=== PATIENT | male | born 1970 | race Caucasian/White ===

== ENCOUNTER 2020-04-13 19:26 | Emergency (ER) | payer OTHER, SELFPAY ==
[2020-04-13 19:37] VITALS: BP 143/76; PULSE 96; RESP 20; TEMP 37.1; O2SAT 98
--- NOTE | 2020-04-13 19:37 | ED.GENADULT ---
HPI - General Adult General Chief complaint: Skin/Abscess/Foreign Body Stated complaint: red patches on left arm Time Seen by Provider: 04/13/20 19:37 Source: patient and RN notes reviewed Mode of arrival: ambulatory Limitations: no limitations History of Present Illness HPI narrative: 49-year-old male presents with complaints of redness, swelling, and itching rash to LT arm for the past 6 hours. No treatment. Ricky says he was outside earlier prior to rash and might had been bitten by and insect unsure at this time. Denies new detergent, personal hygiene products or laundry detergents. No new foods or medications. No pain, burning, bleeding, or drainage. Denies fever, chills, headaches, weakness, fatigue, myalgia, facial swelling, or tongue swelling. Denies dyspnea. Remains active. Tolerating p.o. intake. The patient reports he have not been diagnosed with COVID-19. The patient reports he is not waiting for the results of a COVID-19 lab test. The patient reports he do not have fever, chills, weakness, fatigue, or loss of appetite. The patient reports he do not have a new or worsening cough or shortness of breath. Denies chest pain. The patient reports he do not have any rhinorrhea, congestion, sore throat, nausea, vomiting, abdominal pain, and diarrhea. Denies recent traveling. Denies concerns for COVID-19 or exposures been home with limited outdoor exposure except for essential household needs and return home. At this time, patient is not suspected of having COVID-19. Some parts of this dictation were generated by voice recognition software and may contain typographical and/or grammatical inaccuracies. Related Data Home Medications Medication Instructions Recorded Confirmed Heart Burn Medicine 04/13/20 Htn Medicine 04/13/20 Thyroid Medicine 04/13/20 Allergies Allergy/AdvReac Type Severity Reaction Status Date / Time ibuprofen AdvReac Other Verified 04/13/20 19:36 Review of Systems Review of Systems: Narrative: CONSTITUTIONAL: Denies fever, chills, sweats. EYES: Denies visual changes, redness, discharge. ENT: Denies rhinorrhea, congestion, sore throat, otalgia. CARDIOVASCULAR: Denies chest pain, palpitations, edema. RESPIRATORY: Denies dyspnea, wheezing, cough. GASTROINTESTINAL: Denies abdominal pain, nausea, vomiting, diarrhea. GENITOURINARY: Denies dysuria, hematuria, abnormal discharge. SKIN: Complains of redness, swelling, and itching rash to LT arm. Denies drainage or pain. MUSCULOSKELETAL: Denies acute back pain, joint pain, or myalgia. NEUROLOGIC: Denies numbness or focal weakness. PSYCHIATRIC: Denies anxiety or depression. All other systems reviewed are negative, except as documented in HPI and below. [facility] Past Medical History Medical History (Updated 04/14/20 @ 00:00 by Nunu Chang) Abnormal biopsy of kidney History of gastroesophageal reflux (GERD) Hypertension Hypothyroidism Kidney malignancy Surgical History Surgical History (Updated 04/13/20 @ 19:50 by JOHNATHON Almaraz) History of nephrectomy, right Family History Family History (Updated 04/13/20 @ 19:51 by JOHNATHON Almaraz) Father , Multiple CVAs and [place] Acute myocardial infarction Cerebrovascular accident Mother , Old age No problems noted. Social History Social History (Updated 04/13/20 @ 19:51 by JOHNATHON Almaraz) Smoking packs per day: 1 Smoking cigarettes per day: 20.0 Years smoked: 40 Smoking pack-years: 40.00 Smoking status: Current every day smoker Tobacco type: cigarettes Second hand tobacco smoke exposure: Yes Alcohol intake: never Substance use: never Living arrangements: with family Occupation/Education: occupation Gender identity (if verbalized by the patient): Male Sexual Orientation (if Verbalized by the Patient): Straight or Heterosexual Comments At time of signature, agree with nurse past medical, surgic
== END 2020-04-13 19:57 | disposition home or self-care (01) ==
PROVIDERS: Emergency Provider Nurse Practitioner Family; PCP Nurse Practitioner Family
DX: S40.862A Insect bite (nonvenomous) of left upper arm, initial encounter (principal); W57.XXXA Bitten or stung by nonvenomous insect and other nonvenomous arthropods, initial encounter; K21.9 Gastro-esophageal reflux disease without esophagitis; I10 Essential (primary) hypertension; E03.9 Hypothyroidism, unspecified; Z85.528 Personal history of other malignant neoplasm of kidney; Z90.5 Acquired absence of kidney
CPT/HCPCS: 99213; G0463

== ENCOUNTER 2021-10-24 08:57 | Emergency (ER) | payer OTHER, SELFPAY ==
--- NOTE | 2021-10-24 09:01 | ED.URI ---
HPI - URI/Sore Throat General Chief Complaint: Upper Respiratory Infection Stated Complaint: Sinus Pain/Ear Pain Time Seen by Provider: 10/24/21 09:24 Source: patient and RN notes reviewed Mode of arrival: ambulatory Limitations: no limitations History of Present Illness HPI Narrative: 51-year-old man presents with concern for sinus pressure and pain. He reports ear pain when he blows his nose. He reports symptoms started approximately 3 days ago when he began working in a [employer] environment. He denies cough, shortness of breath, fever, chills, body aches, sweats, headache, nausea, vomiting, diarrhea. Denies known sick contacts. He denies taking any [id number] intervention. MD elicited complaint: nasal congestion Related Data Home Medications Medication Instructions Recorded Confirmed folic acid 10/24/21 levothyroxine 10/24/21 omeprazole 10/24/21 pravastatin 10/24/21 tamsulosin mg PO 10/24/21 Allergies Allergy/AdvReac Type Severity Reaction Status Date / Time ibuprofen AdvReac Other Verified 10/24/21 09:12 Review of Systems Review of Systems: CONSTITUTIONAL: Denies malaise, chills, sweats, or fever. EYES: Denies visual changes, redness, or discharge. ENT: Reports rhinorrhea, congestion, sinus pain, otalgia. Denies sore throat. CARDIOVASCULAR: Denies chest pain, palpitations, or edema. RESPIRATORY: Denies cough. Denies dyspnea. GASTROINTESTINAL: Denies abdominal pain, nausea, vomiting, diarrhea SKIN: Denies rash or itching. MUSCULOSKELETAL: Denies myalgia. NEUROLOGIC: Denies headache. All systems reviewed & are unremarkable except as noted in HPI and below PMFSH Past Medical History Medical History (Updated 10/24/21 @ 09:34 by Hawa Galeano NP) Abnormal biopsy of kidney History of gastroesophageal reflux (GERD) Hypertension Hypothyroidism Kidney malignancy Surgical History Surgical History (Updated 04/13/20 @ 19:50 by JOHNATHON Almaraz) History of nephrectomy, right Family History Family History (Updated 04/13/20 @ 19:51 by JOHNATHON Almaraz) Father , Multiple CVAs and [place] Acute myocardial infarction Cerebrovascular accident Mother , Old age No problems noted. Social History Social History (Updated 04/13/20 @ 19:51 by JOHNATHON Almaraz) Smoking packs per day: 1 Smoking cigarettes per day: 20.0 Years smoked: 40 Smoking pack-years: 40.00 Smoking status: Current every day smoker Tobacco type: cigarettes Second hand tobacco smoke exposure: Yes Alcohol intake: never Substance use: never Gender identity (if verbalized by the patient): Male Sexual Orientation (if Verbalized by the Patient): Straight or Heterosexual Comments At time of signature, agree with nursing past medical, surgical, social and family history. There is no relevant family history pertinent to the presenting complaint Exam Narrative: GENERAL: Well-appearing, well-nourished, and in no acute distress. HEAD: Normocephalic EYES: PERRLA, conjunctivae clear ENT: Nares clear, clear discharge. Mucous membranes moist. TM pearly ortiz with dull light reflex bilaterally; no tragal tenderness. Oropharynx not erythematous without lesions. Tonsils not enlarged and without exudate, no drooling, no hoarseness, no trismus, uvula midline. NECK: Supple. No lymphadenopathy CHEST: Clear to auscultation, breath sounds equal. No wheezing, rhonchi, rales, or stridor. No respiratory distress, speaks in full sentences. HEART: Regular rate and rhythm. No murmur heard. SKIN: Warm, dry, no rash. NEURO: Alert and oriented x3. PSYCH: Normal mood and affect Course Course Emergency Course: Patient is aware of diagnosis, understands and agrees to treatment plan. Anticipatory guidance given. Patient agrees to follow-up as directed and is aware of reasons to seek care at the emergency department. Portions of this record may have been created with voice recognition software
[2021-10-24 09:02] VITALS: BP 126/70; PULSE 91; RESP 16; TEMP 37.3; O2SAT 98
== END 2021-10-24 09:48 | disposition home or self-care (01) ==
PROVIDERS: Emergency Provider Nurse Practitioner; PCP Nurse Practitioner Family
DX: J30.89 Other allergic rhinitis (principal); F17.210 Nicotine dependence, cigarettes, uncomplicated; K21.9 Gastro-esophageal reflux disease without esophagitis; I10 Essential (primary) hypertension; E03.9 Hypothyroidism, unspecified; Z85.528 Personal history of other malignant neoplasm of kidney
CPT/HCPCS: 99213; G0463

== ENCOUNTER 2022-06-04 13:36 | Outpatient (CLI) | payer OTHER, SELFPAY | END 2022-06-04 13:37 | disposition home or self-care (01) | LOC: ANHBWCAUD 13:38 | PROVIDERS: PCP Nurse Practitioner Family; Visit Provider Otolaryngology | DX: H90.3 Sensorineural hearing loss, bilateral (principal) | CPT/HCPCS: 92557; 92567 ==